=== PATIENT | male | born 2000 | race Caucasian/White ===

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

== ENCOUNTER 2025-04-22 02:25 | Emergency (ER) | payer MEDICAID, SELFPAY ==
--- NOTE | 2025-04-22 02:32 | ED_ITS ---
Discharge Plan Disposition Patient Disposition: Home, Self-Care Referrals Follow up/Referrals: Kaur Ramirez [Primary Care Provider, Medical] - See instructions Activity Restrictions/Add. Instructions Additional Instructions/Restrictions: Please follow-up with your primary care provider. Please return to the emergency department if you develop any new or worsening symptoms or become concerned for your health. Clinical Impressions Clinical Impression: Vomiting Print Language Print Language: German Discharge ED Provider: Juan Pearl General Adult HPI General Chief complaint: Headache Stated complaint: high blood pressure Time Seen by Provider: 04/22/25 02:32 History of Present Illness HPI narrative: 24-year-old male with history of hypertension presents with concern for high blood pressure. He reports that he woke up and felt like his heart was pounding. Not fast, but just hard. He also felt a little pressure in his temples. He took his metoprolol which is prescribed to him for blood pressure, he had not taken it today prior to this. He drove around for a while and then started to feel little bit worse and vomited and so decided to be evaluated. He reports he is not feeling nauseous right now and his heart is no longer pounding. Denies any other significant symptoms or concerns. Related Data Allergies Allergy/AdvReac Type Severity Reaction Status Date / Time No Known Allergies Allergy Verified 04/22/25 02:39 [facility] Disclaimer: The information contained in this section may have been updated after the patient was seen, as this information can be updated by other users. Social History Smoking Status: Never smoker alcohol intake: never current occupational status: other Travel in the last 8 weeks?: None ROS Obtained: Yes All systems reviewed & no additional complaints except as documented Physical Exam General General appearance: alert and in no apparent distress Head Head exam: atraumatic and normocephalic Eye Eye exam: Present normal appearance, PERRL and EOMI ENT ENT exam: Present normal oropharynx and normal external ear exam Neck Neck exam: Present normal inspection and full ROM Chest Chest inspection: Present normal inspection and symmetric chest wall rise; Absent tenderness Respiratory Respiratory exam: Present normal lung sounds bilaterally; Absent respiratory distress Cardiovascular Cardiovascular exam: Present regular rate and normal rhythm Abdominal Exam Abdominal exam: Present soft; Absent distention, tenderness or guarding Extremities Exam Extremities exam: Present normal inspection; Absent edema or joint swelling Back Exam Back exam: Present normal inspection; Absent tenderness Neurological Exam Neurological exam: Present alert and oriented X3; Absent motor sensory deficit Psychiatric Psychiatric exam: Present normal affect and normal mood Skin Skin exam: Present warm, dry and normal color Lymphatic Lymphatic Findings: no adenopathy Medical Decision Making Medical Records Medical records reviewed: Yes I reviewed the patient's medical records. Screening: Per USPSTF and CDC recommendations, given the prevalence of disease in our region, it is our hospital?s policy to screen for HIV and viral Hepatitis for all patients aged 18 and over and those with ongoing risk factors. Valentino Inquiry Pt receiving controlled substance: No Valentino was queried for this patient: No Vital Signs: 04/22/25 02:37 Temperature 98.9 F Temperature Source Oral Pulse Rate [Left] 99 H Respiratory Rate 16 Blood Pressure [Right Arm] 158/110 H Blood Pressure Mean [Right Arm] 126 Blood Pressure Source [Right Arm] Automatic Cuff Blood Pressure Position [Right Arm] Sitting 02 Sat by Pulse Oximetry 99 Oxygen Delivery Method Room Air Lab Data Lab results reviewed: Yes I reviewed the patient's lab results. Orders (Tests/Meds): ED MEDICATIONS Discontinued Medications Generic Name Dose Route Start Last Admin Trade Name Freq PRN Reason Stop Dose Admin Acetaminophen 1,000 mg 04/22/25 02:32 04/22/25 02:39 Acetaminophen 500mg Tab PO 04/22/25 02:33 1,000 mg ONCE ONE Administration ORDERS Category Date Time Status HIV Combo Stat Lab 04/22/25 02:47 Ordered Hepatitis C Ab Qual. W/ RFX Stat Lab 04/22/25 02:47 Ordered Medical Decision Narrative: 24-year-old male with history of hypertension presents for concern about possible high blood pressure.. History was obtained via interactive discussion with patient. On arrival, patient is [afebrile, hemodynamically stable, satting appropriately, alert, oriented x4, GCS 15], moving all extremities spontaneously. Full physical exam performed and significant for no significant physical exam abnormalities Differential includes but is not limited to asymptomatic hypertension, arrhythmia, tension headache, gastroenteritis. Patient was given Tylenol. There is significant concern for emergent pathology at this time. Lab work was considered but deemed unnecessary. Patient discharged in stable condition. Return precautions given. Procedures Risk/Benefits of Procedure(s) Were Explained: Yes Critical Care Critical Care Time Critical Care Time: No
--- OUTSIDE RECORDS SUMMARY | 2025-04-22 02:33 | XMS_ITS | Data Portability ---
Author Organization [facility] Address [address] [place] [address] Assessment Encounter Date Assessment Date Assessment LastModified by Organization Details LastModified Time 06/13/2018 06/13/2018 Well-appearing adolescent presents for WCC. Growing and developing well. No concerns about vision or hearing. Anticipatory guidance discussed, including post-high school plans, family communication, appropriate nutrition and activity for age, risk taking behaviors, car safety, sexual activity, avoid drugs/EtOH, signs of depression. Follow-up as below for next WCC, sooner if any new concerns. [email or web address] Not available 06/13/2018 10:26:01 11/21/2024 11/21/2024 -Medications were reviewed and any necessary updates and renewals were made, patient instructed to complete as prescribed. -The potential side effects of medications were discussed. -Counseling was done on care goals and ways to prevent future hospitalization s. -Further treatment per orders listed below. [email or web address] Not available 11/20/2024 11:42:50 Plan of Treatment Reminders Order Date Submit Date Provider Last Modified By Organization Details Last Modified Time Details Appointments None recorded. Lab HbA1c (hemoglobin A1c), blood 2024 025 [email or web address] s4 [facility], [address], [address] [address], [place], [address], 15:42:18 CMP, serum or plasma 2024 025 [email or web address] s4 [facility], [address], [place], [place], [address], 5 15:41:55 lipid panel, serum 2024 025 [email or web address] [facility], [address], [place] [address], [place], [address], 5 15:41:38 magnesium, serum or plasma 2024 025 TERESA [facility], [address], [place], [place], [address], 5 08:21:56 CBC w/ auto diff 2024 025 TERESA [facility], [address], [place], [place], [address], 5 08:21:51 cobalamin and folate panel, serum 2024 025 TERESA [facility], [address], [place], [place], [address], 5 08:21:54 CMP, serum or plasma 2024 025 TERESA [facility], [address], [place], [place], [address], 5 08:21:52 lipid panel, serum 2024 025 TERESA [facility], [address], [place], [place], [address], 5 08:21:53 TSH + free T4, serum 2024 025 TERESA [facility], [address], [place], [place], [address], 5 08:21:50 HbA1c (hemoglobin A1c), blood 2024 025 TERESA [facility], [address], [place], [place], [address], 5 08:21:54 vitamin D, 25-hydroxy, total, serum 2024 025 TERESA [facility], [address], [place], [place], [address], 08:21:55 lipid panel, serum 2024 025 [facility], [address], [place], [place], [address], 08:27:56 Referral cardiologis t referral 2024 025 [email or web address] 8 Christiano Ozuna MD, [address], [facility] [address], [place], [address], 16:50:38 nutritionis t/dietitian referral - he would like a good diet to help loose weight. 2024 025 [facility] s[address], [address] [facility], [place], [address], 12:00:29 Procedures None recorded. Surgeries None recorded. Imaging electrocard iogram 2024 025 [facility] s4 [facility], [address] [place] [address], [place], [address], 16:10:43 Medication Orders cholecalcif ministerio (vitamin D3) 50 mcg (2,000 unit) capsule 2024 025 [facility], [address] [place], [address], 5 14:25:14 metoprolol succinate ER 25 mg tablet,exte nded release 24 hr 2024 025 [facility], [address] [place], [address], 5 13:55:20 omeprazole 20 mg capsule,del ayed release 2024 025 [facility], [address] [place], [address], 13:55:23 metoprolol succinate ER 25 mg tablet,exte nded release 24 hr 2024 025 [facility], [address] [place], [address], 13:13:25 omeprazole 20 mg capsule,del ayed release 2024 025 [facility], [address] [place], [address], 13:13:24 ranitidine 150 mg tablet [email or web address] [facility], [address] [place], [address], 13:02:38 Patient TargetsNo targets recorded. Patient Instructions Encounter Date Encounter Id Patient Instructions Last Modified By Organization Details Last Modified Time 06/13/2018 [id number] learning about healthy weight for teens [email or web address] Not available 06/13/2018 10:30:13 patient health questionnaire modified for adolescents* [email or web address] Not available 06/13/2018 11:33:54 vision screen: Snellen* TERESA Not available 06/13/2018 10:48:38 11/21/2024 [id number] palpitations: care instructions Not available 11/21/2024 13:13:22 When You Want to Lose Weight: Care Instructions Not available 11/21/2024 13:13:22 Monitor b/p, record and bring back for f/u. Will call with lab results. Since he's not had any further SVT, most likely r/t binging, will hold off on cardiology opinion but plan to send if returns. Avoid Red Bull type of drinks. Avoid alcohol. RTC in a month or sooner prn. Not available 11/21/2024 13:24:17 12/26/2024 [id number] David magdaleno weekly reminder on phone for Vit D. Continue current medications and lifestyle modifications. Will see him back in 3 months. Plan to repeat labs at that visit. Vit D, CMP, HgbA1c, Lipid. The patient will report any new or worsening symptoms. The patient will return to clinic if new or worsening symptoms are noted, or if if the symptoms do not resolve. If marked worsening of the symptoms is noted the patient will go to the emergency department of their choice. Not available 12/26/2024 09:15:17 03/28/2025 [id number] Will send to cardiology. If chest pain worsens he knows to go to the ER. Keep hydrated. Will see him in 3 months and plan to repeat labs then (Vit D and hgba1c). We deferred labs today as cardiology will be getting some as well. 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 Referring Physician: Coreen Barragan, Family Medicine, Encounter Date: 11/21/2024 Spot Facer Referral for At ypical chest pain Referring Physician: Coreen Barragan Family Medicine, Encounter Date: 03/28/2025 Results Created Date Observation Date Name Description Value Unit Range Abnormal Flag Note LastModifiedBy Organization Detail LastModifiedTime 06/13/20 18 06/13/2018 dom méndez n: Candi en* Rt Eye Uncorrected 20/20 Not Available [facility] [address], [address], 06/13/2018 09:35:35 06/13/20 18 06/13/2018 dom méndez n: Candi en* Lt Eye Uncorrected 20/35 Not Available [facility] [address], [place], [address], 06/13/2018 09:35:35 11/21/19 25 11/22/2024 TSH+F REE T4 TSH 2.790 uIU/m L 0.450- 4.500 normal Not Available [facility] [address] [place], [address], 11/22/2024 08:21:50 11/21/19 25 11/22/2024 TSH+F REE T4 T4,free(dire ct) 1.16 NG/dL 0.82-1 .77 normal Not Available [facility] [address] [place], [address], 11/22/2024 08:21:50 11/21/19 25 11/22/2024 CBC WITH DIFFE RENTI AL/PL ATELE T WBC 9.2 x10e3 /uL 3.4-10 .8 normal Not Available [facility] [address] [place], [address], 11/22/2024 08:21:51 11/21/19 25 11/22/2024 CBC WITH DIFFE RENTI AL/PL ATELE T RBC 5.38 x10e6 /uL 4.14-5 .80 normal Not Available [facility] [address] [place], [address], 11/22/2024 08:21:51 11/21/19 25 11/22/2024 CBC WITH DIFFE RENTI AL/PL ATELE T hemoglobin 16.3 g/dL 13.0-1 7.7 normal Not Available [facility] [address] [place], [address], 11/22/2024 08:21:51 11/21/19 25 11/22/2024 CBC WITH DIFFE RENTI AL/PL ATELE T hematocrit 48.4 % 37.5-5 1.0 normal Not Available [facility] [address] [place], [address], 11/22/2024 08:21:51 11/21/19 25 11/22/2024 CBC WITH DIFFE RENTI AL/PL ATELE T MCV 90 fL 79-97 normal Not Available [facility] [address] [facility], [place], [address], 11/22/2024 08:21:51 11/21/19 25 11/22/2024 CBC WITH DIFFE RENTI AL/PL ATELE T MCH 30.3 pg 26.6-3 3.0 normal Not Available [facility] [address] [facility], [place], [address], 11/22/2024 08:21:51 11/21/19 25 11/22/2024 CBC WITH DIFFE RENTI AL/PL ATELE T MCHC 33.7 g/dL 31.5-3 5.7 normal Not Available [facility] [address] [facility], [place], [address], 11/22/2024 08:21:51 11/21/19 25 11/22/2024 CBC WITH DIFFE RENTI AL/PL ATELE T RDW 12.6 % 11.6-1 5.4 Not Available [facility] [address] [place], [address], 11/22/2024 08:21:51 11/21/19 25 11/22/2024 CBC WITH DIFFE RENTI AL/PL ATELE T platelets 181 x10e3 /uL 150-45 0 normal Not Available [facility] [address] [place], [address], 11/22/2024 08:21:51 11/21/19 25 11/22/2024 CBC WITH DIFFE RENTI AL/PL ATELE T neutrophils 60 % not estab. normal Not Available [facility] [address] [place], [address], 11/22/2024 08:21:51 11/21/19 25 11/22/2024 CBC WITH DIFFE RENTI AL/PL ATELE T lymphs 25 % not estab. normal Not Available [facility] [address] [place], [address], 11/22/2024 08:21:51 11/21/19 25 11/22/2024 CBC WITH DIFFE RENTI AL/PL ATELE T monocytes 7 % not estab. normal Not Available [facility] [address] [place], [address], 11/22/2024 08:21:51 11/21/19 25 11/22/2024 CBC WITH DIFFE RENTI AL/PL ATELE T eos 7 % not estab. normal Not Available [facility] [address] [place], [address], 11/22/2024 08:21:51 11/21/19 25 11/22/2024 CBC WITH DIFFE RENTI AL/PL ATELE T basos 1 % not estab. normal Not Available [facility] [address] [place], [address], 11/22/2024 08:21:51 11/21/19 25 11/22/2024 CBC WITH DIFFE RENTI AL/PL ATELE T immature cells WEB SERVICES DEVELOPER Not Available [facility] [address] [place], [address], 11/22/2024 08:21:51 11/21/19 25 11/22/2024 CBC WITH DIFFE RENTI AL/PL ATELE T neutrophils (absolute) 5.5 x10e3 /uL 1.4-7. 0 normal Not Available [facility] [address] [place], [address], 11/22/2024 08:21:51 11/21/19 25 11/22/2024 CBC WITH DIFFE RENTI AL/PL ATELE T lymphs (absolute) 2.3 x10e3 /uL 0.7-3. 1 normal Not Available [facility] [address] [place], [address], 11/22/2024 08:21:51 11/21/19 25 11/22/2024 CBC WITH DIFFE RENTI AL/PL ATELE T monocytes(ab solute) 0.6 x10e3 /uL 0.1-0. 9 normal Not Available [facility] [address] [place], [address], 11/22/2024 08:21:51 11/21/19 25 11/22/2024 CBC WITH DIFFE RENTI AL/PL ATELE T eos (absolute) 0.6 x10e3 /uL 0.0-0. 4 above high normal Not Available [facility] [address] [facility], [place], [address], 11/22/2024 08:21:51 11/21/19 25 11/22/2024 CBC WITH DIFFE RENTI AL/PL ATELE T baso (absolute) 0.1 x10e3 /uL 0.0-0. 2 normal Not Available [facility] [address] [place], [address], 11/22/2024 08:21:51 11/21/19 25 11/22/2024 CBC WITH DIFFE RENTI AL/PL ATELE T immature granulocytes 0 % not estab. Not Available [facility] [address] [facility], [place], [address], 11/22/2024 08:21:51 11/21/19 25 11/22/2024 CBC WITH DIFFE RENTI AL/PL ATELE T immature grans (abs) 0.0 x10e3 /uL 0.0-0. 1 Not Available [facility] [address] [facility], [place], [address], 11/22/2024 08:21:51 11/21/19 25 11/22/2024 CBC WITH DIFFE RENTI AL/PL ATELE T NRBC WEB SERVICES DEVELOPER Not Available [facility] [address] [facility], [place], [address], 11/22/2024 08:21:51 11/21/19 25 11/22/2024 CBC WITH DIFFE RENTI AL/PL ATELE T hematology comments: WEB SERVICES DEVELOPER Not Available [facility] [address] [facility], [place], [address], 11/22/2024 08:21:51 11/21/19 25 11/22/2024 COMP. METAB OLIC PANEL (14) glucose 114 mg/dL 70-99 above high normal Not Available [facility] [address] [facility] [place], [address], 11/22/2024 08:21:52 11/21/19 25 11/22/2024 COMP. METAB OLIC PANEL (14) BUN 13 mg/dL 6-20 normal Not Available [facility] [address] [facility], [place], [address], 11/22/2024 08:21:52 11/21/19 25 11/22/2024 COMP. METAB OLIC PANEL (14) creatinine 0.95 mg/dL 0.76-1 .27 normal Not Available [facility] [address] [facility] [place], [address], 11/22/2024 08:21:52 11/21/19 25 11/22/2024 COMP. METAB OLIC PANEL (14) eGFR 115 mL/mi n/1.7 3 >59 normal Not Available [facility] [address] [facility] [place], [address], 11/22/2024 08:21:52 11/21/19 25 11/22/2024 COMP. METAB OLIC PANEL (14) BUN/creatini ne ratio 14 9-20 normal Not Available [facility] [address] [facility] [place], [address], 11/22/2024 08:21:52 11/21/19 25 11/22/2024 COMP. METAB OLIC PANEL (14) sodium 137 mmol/ L 134-14 4 normal Not Available [facility] [address] [facility] [place], [address], 11/22/2024 08:21:52 11/21/19 25 11/22/2024 COMP. METAB OLIC PANEL (14) potassium 3.9 mmol/ L 3.5-5. 2 normal Not Available [facility] [address] [facility] [place], [address], 11/22/2024 08:21:52 11/21/19 25 11/22/2024 COMP. METAB OLIC PANEL (14) chloride 99 mmol/ L 96-106 normal Not Available [facility] [address] [facility], [address], 11/22/2024 08:21:52 11/21/19 25 11/22/2024 COMP. METAB OLIC PANEL (14) carbon dioxide, total 25 mmol/ L 20-29 normal Not Available [facility] [address] [place], [address], 11/22/2024 08:21:52 11/21/19 25 11/22/2024 COMP. METAB OLIC PANEL (14) calcium 9.7 mg/dL 8.7-10 .2 normal Not Available [facility] [address] [place] [place], [address], 11/22/2024 08:21:52 11/21/19 25 11/22/2024 COMP. METAB OLIC PANEL (14) protein, total 7.6 g/dL 6.0-8. 5 normal Not Available [facility] [address] [place], [address], 11/22/2024 08:21:52 11/21/19 25 11/22/2024 COMP. METAB OLIC PANEL (14) albumin 4.4 g/dL 4.3-5. 2 normal Not Available [facility] [address] [place], [address], 11/22/2024 08:21:52 11/21/19 25 11/22/2024 COMP. METAB OLIC PANEL (14) globulin, total 3.2 g/dL 1.5-4. 5 Not Available [facility] [address] [place], [address], 11/22/2024 08:21:52 11/21/19 25 11/22/2024 COMP. METAB OLIC PANEL (14) bilirubin, total 0.3 mg/dL 0.0-1. 2 normal Not Available [facility] [address] [place], [address], 11/22/2024 08:21:52 11/21/19 25 11/22/2024 COMP. METAB OLIC PANEL (14) alkaline phosphatase 104 IU/L 44-121 normal Not Available [facility] [address] [place], [address], 11/22/2024 08:21:52 11/21/19 25 11/22/2024 COMP. METAB OLIC PANEL (14) AST (SGOT) 45 IU/L 0-40 above high normal Not Available [facility] [address] [place], [address], 11/22/2024 08:21:52 11/21/19 25 11/22/2024 COMP. METAB OLIC PANEL (14) ALT (SGPT) 92 IU/L 0-44 above high normal Not Available [facility] [address] [place], [address], 11/22/2024 08:21:52 11/21/19 25 11/22/2024 LIPID PANEL cholesterol, total 164 mg/dL 100-19 9 normal Not Available [facility] [address] [place], [address], 11/22/2024 08:21:53 11/21/19 25 11/22/2024 LIPID PANEL triglyceride s 134 mg/dL 0-149 normal Not Available [facility] [address] [place], [address], 11/22/2024 08:21:53 11/21/19 25 11/22/2024 LIPID PANEL HDL cholesterol 42 mg/dL >39 normal Not Available [facility] [address] [place], [address], 11/22/2024 08:21:53 11/21/19 25 11/22/2024 LIPID PANEL VLDL cholesterol sherly 24 mg/dL 5-40 Not Available [facility] [address] [place], [address], 11/22/2024 08:21:53 11/21/19 25 11/22/2024 LIPID PANEL LDL chol calc ([facility]) 98 mg/dL 0-99 Not Available [facility] [address] [place], [address], 11/22/2024 08:21:53 11/21/19 25 11/22/2024 LIPID PANEL LDL calc comment: WEB SERVICES DEVELOPER Not Available [facility] [address] [place], [address], 11/22/2024 08:21:53 11/21/19 25 11/22/2024 VITAM IN B12 AND FOLAT E vitamin B12 470 pg/mL 232-12 45 normal Not Available [facility] [address] [place], [address], 11/22/2024 08:21:53 11/21/19 25 11/22/2024 VITAM IN B12 AND FOLAT E folate (folic acid), serum 6.1 NG/mL >3.0 normal A serum folat e senia ntrat ion of less than 3.1 ng/mL is consi dered to repre sent clini sherly defic iency . Not Available [facility] [address] [facility], [place], [address], 11/22/2024 08:21:53 11/21/19 25 11/22/2024 HEMOG LOBIN A1C hemoglobin A1C 6.0 % 4.8-5. 6 above high normal Predi abete s: 5.7 - 6.4 Diabe tahmina: >6.4 Glyce nita contr ol for adult s with diabe tahmina: <7.0 Not Available [facility] [address] [facility], [place], [address], 11/22/2024 08:21:54 11/21/19 25 11/22/2024 VITAM IN D, 25-HY DROXY vitamin D, 25-hydroxy 19.5 NG/mL 30.0-1 00.0 below low normal Vitam in D defic iency has been defin ed by the Insti tute of Medic ine and an Endoc [facility] Socie ty pract ice guide line as a level of serum 25-OH vitam in D less than 20 ng/mL (1,2) . The Endoc rine Socie ty went on to furth er defin e vitam in D insuf ficie ncy as a level betwe en 21 and 29 ng/mL (2). 1. IOM (Inst itute of Medic ine). 2010. Dieta ry refer ence intak es for calci um and D. Heaven santos [place]: The Natio nal [facility] Press . 2. Elmer conti MF, Clint saldivar [place], Akila off-F hannah i PASTRANA, et al. Evalu ation , treat ment, and preve ntion of vitam in D defic iency : an Endoc rine Socie ty clini sherly pract ice guide line. JCEM. 2010; 96(7) :1911 -30. Not Available [facility] [address] [facility], [place], [address], 11/22/2024 08:21:55 11/21/19 25 11/22/2024 MAGNE SIUM magnesium 2.1 mg/dL 1.6-2. 3 normal Not Available [facility] [address] [facility], [place], [address], 11/22/2024 08:21:56 06/02/20 18 06/02/2018 CT, abdom en + pelvi s, w/o contr ast No observ ation record ed. [email or web address] (Imaging) [address] [facility] , [place], [address], 06/02/2018 15:08:48 11/22/19 25 11/19/2024 elect rocar diogr am No observ ation record ed. BARCODE Not Available 2024 14:17:38 03/28/20 25 03/28/2025 elect rocar diogr am No observ ation record ed. [facility] [address], [place], [address], 03/28/2025 16:47:08 03/28/20 25 03/28/2025 elect rocar diogr am No observ ation record ed. BARCODE [facility] [address] [facility], [place], [address], 03/28/2025 17:19:52 Result Notes None recorded. Problems Name Problem SNOMED Code Status Onset Date Resolution Date Notes Provider Name and Address Organization Details Recorded Time Palpitations 79769800 Active 2024 Coreen Barragan APRN [address], [place], [address], [facility] - [facility] 13:08:25 Elevated blood-pressure reading without diagnosis of hypertension 523029543 Active 2024 Coreen Barragan APRN [address], [place], [address], [place] - [facility] 5 13:08:41 Gastroesophage al reflux disease without esophagitis 726529012 Active 2024 Coreen Barragan , TOUR NARRATOR [address], [place], [address], [place] - [facility] 5 13:11:33 Morbid obesity 396051954 Active 2024 Coreen Barragan , TOUR NARRATOR [address], [place], [address], [place] - [facility] 5 13:12:47 Vitamin D deficiency 13085317 Active 2024 Coreen Barragan , TOUR NARRATOR [address], [place], [address], [place] - [facility] 5 15:24:30 Prediabetes 527229348 Active 2024 Coreen Barragan , TOUR NARRATOR [address], [place], [address], [place] - [facility] 5 15:28:07 Atypical chest pain 440685566 Active 2024 Coreen Barragan , TOUR NARRATOR [address], [place], [address], [place] - [facility] 5 15:29:00 Tachycardia 0358771 Active 2024 Coreen Barragan , TOUR NARRATOR [address], [place], [address], [place] - [facility] 5 15:38:17 Problem Notes None recorded. Procedures Surgical History Date Name Laterality Status Provider Name and Address Organization Details Recorded Time 11/21/19 Medication Reconcilliation completed Julia Rodriguez [place] - [facility] 11/20/2024 11:42:50 Imaging Results None recorded. Procedure Notes None recorded. Medical Equipment None Reported. Allergies No known drug allergies Medications Name Sig Start Date Stop Date Status Note LastModified by Organization Details LastModified Time loperamid e 2 mg tablet take 1 tablet by oral route 2 times a day for 1 day 05/10 completed loperami de 2 mg oral tablet;R ecorded Status: Recorded on: 08/15/20 13 11:02AM; Disconti nued Status: Disconti nued on: 05/10/20 14 3:57PM;U ser: [email or web address] b;Printe d: 08/15/20 13 Not Available Not Available Not Available penicilli n V potassium 500 mg tablet take 1 tablet (500 mg) by oral route 3 times per day for 10 days 05/10 completed penicill in V potassiu m 500 mg oral tablet;R ecorded Status: Recorded on: 08/15/20 13 11:02AM; Disconti nued Status: Disconti nued on: 05/10/20 14 3:57PM;U ser: [email or web address] b;Est. Completi on: 08/25/20 13;Print ed: 08/15/20 13 Not Available Not Available Not Available Phenergan 25 mg rectal supposito ry 1 tsp po q 6 hrs prn 06/30 completed Phenerga n 25 mg rectal supposit ory;Marc rded Status: Recorded on: 07/06/20 08 10:04PM; Disconti nued Status: Disconti nued on: 06/30/20 12 1:27PM;U ser: system Not Available Not Available Not Available ranitidin e 150 mg tablet Take 1 tablet twice a day by oral route. 11/21 completed Not Available Not Available Not Available Concerta 36 mg tablet,ex tended release 1 q am 06/30 completed Concerta 36 mg oral tablet extended release 24hr;Rec orded Status: Recorded on: 07/06/20 08 10:03PM; Disconti nued Status: Disconti nued on: 06/30/20 12 1:27PM;U ser: [email or web address] Not Available Not Available Not Available omeprazol e 20 mg capsule,d elayed release TAKE (1) CAPSULE BY MOUTH ONCE A DAY. active Not Available Not Available No t Available metoprolo l succinate ER 25 mg tablet,ex tended release 24 hr TAKE 1 TABLET BY MOUTH ONCE A DAY. active Not Available Not Available No t Available Benadryl 6.25 mg/5 mL oral liquid one tsp po q 6 hrs prn 06/30 completed Benadryl 6.25 mg/5 mL oral liquid;R ecorded Status: Recorded on: 07/06/20 08 10:03PM; Disconti nued Status: Disconti nued on: 06/30/20 12 1:27PM;U ser: [email or web address] Not Available Not Available Not Available cholecalc iferol (vitamin D3) 1,250 mcg (50,000 unit) capsule TAKE 1 CAPSULE BY MOUTH ONCE A WEEK FOR VIT D DEFICIEN CY. 03/28 completed Not Available Not Available Not Available cholecalc iferol (vitamin D3) 50 mcg (2,000 unit) capsule TAKE 1 CAPSULE BY MOUTH ONCE DAILY. active Not Available Not Available No t Available Vitals Date Recorded Body height Body mass index (BMI) Body weight Heart rate Body temperature Oxygen saturation Oxygen saturation in Arterial blood by Pulse oximetry Respiratory rate Systolic And Diastolic Provider Name and Address Organization Details Last Updated DateTime 5 170.18 cm 42.8 kg/m2 254919. 42 g 89 /min 97.8 [degF] 98 % 98 % 17 /min 132/88 mm[Hg] Kareen Fede [place] - [facility] 5 13:04:40 Date Recorded Body height Body mass index (BMI) Body weight Heart rate Oxygen saturation Oxygen saturation in Arterial blood by Pulse oximetry Body temperature Respiratory rate Systolic And Diastolic Provider Name and Address Organization Details Last Updated DateTime 5 170.18 cm 41.8 kg/m2 560362. 16 g 95 /min 98 % 98 % 97.8 [degF] 18 /min 126/80 mm[Hg] Julia Rodriguez [place] - [facility] 5 08:59:13 Date Recorded Body height Body mass index (BMI) Body weight Body temperature Heart rate Oxygen saturation Oxygen saturation in Arterial blood by Pulse oximetry Respiratory rate Systolic And Diastolic Provider Name and Address Organization Details Last Updated DateTime 5 170.18 cm 42 kg/m2 036232. 76 g 98 [degF] 88 /min 97 % 97 % 19 /min 128/84 mm[Hg] Kuldeep Bourgeois [place] - [facility] 5 15:19:16 Date Recorded Body height Body mass index (BMI) Body weight Body temperature Heart rate Oxygen saturation Oxygen saturation in Arterial blood by Pulse oximetry Respiratory rate Systolic And Diastolic Provider Name and Address Organization Details Last Updated DateTime 8 170.18 cm 24 kg/m2 12391.0 3 g 98.4 [degF] 84 /min 98 % 98 % 16 /min 120/80 mm[Hg] Adriana KWONG - [facility] 8 09:49:22 Social History Question Answer Notes LastModified by Organizat ion Details LastModified Time Tobacco Smoking Status Never Smoker VARGHESE Love - [facility] 06/13/2018 09:39:41 Able To Swim? Yes [email or web address] Information not available 06/13/2018 Do You Have An Advance Directive? No [email or web address] Information not available 06/13/2018 Do You Wear A Helmet When Biking? No [email or web address] Information not available 06/13/2018 Are You Blind Or Do You Have Difficulty Seeing? No [email or web address] Information not available 06/13/2018 What Is Your Level Of Caffeine Consumption? Occasional [email or web address] Information not available 06/13/2018 How Much Tobacco Do You Chew? None [email or web address] Information not available 06/13/2018 Are You Deaf Or Do You Have Serious Difficulty Hearing? No [email or web address] Information not available 06/13/2018 Which Illicit Or Recreational Drugs Have You Used? Denies [email or web address] Information not available 06/13/2018 How Many Days Of Moderate To Strenuous Exercise, Like A Brisk Walk, Did You Do In The Last 7 Days? 1 Information not available 06/13/2018 On Those Days That You Engage In Moderate To Strenuous Exercise, How Many Minutes, On Average, Do You Exercise? 1 [email or web address] Information not available 06/13/2018 Swimming/diving Yes Informati on not available 06/13/2018 Hard Of Hearing Or Deaf In One Or Both Ears? No [email or web address] Information not available 06/13/2018 Legally Blind In One Or Both Eyes? No [email or web address] Information no t available 06/13/2018 Live Alone Or With Others? With Others [email or web address] Information not available 06/13/2018 What Was The Date Of Your Most Recent Tobacco Screening? 11/21/2024 [email or web address] Information not available 11/21/2024 How Many Children Do You Have? 0 [email or web address] Information not available 06/13/2018 Do You Use Protection During Sex? Always Information not available 06/13/2018 What Is Your Relationship Status? Single [email or web address] Information not available 06/13/2018 Seat Belts Used Routinely Yes Information not available 06/13/2018 Are You Sexually Active? Yes [email or web address] Information not available 06/13/2018 Smoke Alarm In Home Yes [email or web address] Information not available 06/13/2018 Are You Passively Exposed To Smoke? Yes [email or web address] Information no t available 06/13/2018 How Much Tobacco Do You Smoke? No [email or web address] Information not available 06/13/2018 Do You Use Sunscreen Routinely? No [email or web address] Information not available 06/13/2018 How Many Years Have You Smoked Tobacco? 0 [email or web address] Information not available 06/13/2018 Do You Have Difficulty Walking Or Climbing Stairs? No Information not available 06/13/2018 Sex: Male Functional Status Question Answer Note LastModified by Organization D etails LastModified Time What is your level of alcohol consumption? None [email or web address] Information not available 06/13/2018 Do you have difficulty doing errands alone? No [email or web address] Information not available 06/13/2018 Are you able to care for yourself? Yes [email or web address] Information n ot available 06/13/2018 Do you have difficulty dressing or bathing? No [email or web address] Information not available 06/13/2018 Mental Status Question Answer Note LastModified by Organization D etails LastModified Time Do you have difficulty concentrating, remembering or making decisions? No [email or web address] Information no t available 06/13/2018 Family History Relationship Description Onset Age of this Age Resolved Age Notes LastModified by Organization Details LastModified Time Mother Type 2 diabetes mellitus [email or web address] Not available 2017 09:38:53 Medical History No medical history recorded. Immunizations Vaccine Type Date Status Note Provider Nam e and Address Organization Details Recorded Time Influenza, split virus, quadrivalent, preservative 7 completed Kareen Fede null, [place] - [facility] 11/21/2024 13:02:28 Hib-Hep B 2 completed Kareen Fede null, [place] - [facility] 11/21/2024 13:02:29 Hib-Hep B 1 completed Kareen Fede null, [place] - [facility] 11/21/2024 13:02:29 HPV9 7 completed Kareen Fede null, [place] - [facility] 11/21/2024 13:02:29 IPV 2 completed [place]are[place], [place] - [facility] 11/21/2024 13:02:29 COVID-19 vaccine, vector-nr, [id number], PF, 0.5 mL 1 completed Kareen [place], [place] - [facility] 11/21/2024 13:02:29 pneumococcal conjugate PCV 7 3 completed [place]are[place], [place] - [facility] 11/21/2024 13:02:29 pneumococcal conjugate PCV 7 1 [place] [place] [facility] 11/21/2024 13:02:29 Tdap 2 completed [place] [facility] 11/21/2024 13:02:29 Influenza, split virus, trivalent, preservative 2 completed [place]are[place] - [facility] 11/21/2024 13:02:29 Influenza, split virus, trivalent, preservative 2 completed [place] [facility] 11/21/2024 13:02:29 Influenza, split virus, trivalent, preservative 3 completed [place]are[place] - [facility] 11/21/2024 13:02:29 Influenza, split virus, trivalent, PF 2 completed [place] [facility] 11/21/2024 13:02:29 HPV, quadrivalent 4 completed [place] [facility] 11/21/2024 13:02:29 HPV, quadrivalent 3 completed [place] [facility] 11/21/2024 13:02:29 Hep B, adolescent or pediatric 1 completed [place] [facility] 11/21/2024 13:02:29 Hib (PRP-OMP) 1 completed [place] [facility] 11/21/2024 13:02:29 meningococcal MCV4P 7 completed Kare[place] Fed[place] null, [place] - [facility] 11/21/2024 13:02:29 DTaP, unspecified formulation 5 completed [place] [facility] 11/21/2024 13:02:29 DTaP, unspecified formulation 1 completed [place] [facility] 11/21/2024 13:02:29 DTaP, unspecified formulation 1 completed [place] [facility] 11/21/2024 13:02:29 DTaP, unspecified formulation 1 completed [place] [facility] 11/21/2024 13:02:29 DTaP, unspecified formulation 2 completed [place] [facility] 11/21/2024 13:02:29 meningococcal MCV4, unspecified formulation 7 completed [place] [facility] 11/21/2024 13:02:29 meningococcal MCV4, unspecified formulation 2 completed [place] [facility] 11/21/2024 13:02:29 influenza, unspecified formulation 6 completed Adriana Velasquez [place] [facility] 06/13/2018 09:36:22 Tdap 2 completed Adri[place] Vel[place] [facility] 06/13/2018 11:35:23 IPV 1 completed Adri[place] [facility] 06/13/2018 11:35:37 IPV 1 completed Adri[place] Vel[place] [facility] 06/13/2018 11:36:05 IPV 2 completed Adri[place] Vel[place] [facility] 06/13/2018 11:37:25 IPV 5 completed Adri[place] [facility] 06/13/2018 11:37:55 MMR 2 completed Adri[place] [facility] 06/13/2018 11:38:44 MMR 5 completed Adri[place] Vel[place] [facility] 06/13/2018 11:39:36 Hib, unspecified formulation 2 completed Adri[place] - [facility] 06/13/2018 11:40:46 Hep B, unspecified formulation 2 completed Adri[place] [facility] 06/13/2018 11:41:34 varicella 2 completed Adri[place] - [facility] 06/13/2018 11:41:49 varicella 2 completed Adriana Velas[place] null[place] - [facility] 06/13/2018 11:42:13 meningococcal ACWY, unspecified formulation 4 completed Adri[place], [place] - [facility] 06/13/2018 11:43:32 meningococcal ACWY, unspecified formulation 7 completed Adriana Velas[place] null, [place] - [facility] 06/13/2018 11:43:54 Hep A, ped/adol, 2 dose 8 completed Not Available [facility] 10/20/2019 03:55:09 Past Encounters Encounter ID Performer Location Encounter Start Date Encounter Closed Date Diagnosis/Indication Diagnosis SNOMED-CT Code Diagnosis ICD10 Code Diagnosis Note [id number] MITA Fajardo [facility] [address] [facility] [place] [address] 06/13/2018 09:11:16 06/13/2018 10:49:54 Well child 835944453 Z00.129 Dietary ma nagement surveillance 010971567 Z71.3 Exercises education, guidance, and counseling 549964634 Z71.82 Depression screening 171 809181 Z13.89 On examina tion - general eye examination 310987463 Z01.00 Normal bod y mass index 54288453 Z68.52 Gastritis 3441580 K29.70 Active or passive immunization 570913540 Z23 [id number] MITA Ramosmarcy [facility] [address] [facility] [place] [address] 11/21/2024 12:44:45 11/21/2024 13:27:39 Palpitations 10471045 R00.2 with recent SVT, seen in the ER. Resolved spontaneou sly. Elevated blood-pressure reading without diagnosis of hypertension 720340914 R03.0 Gastroesop hageal reflux disease without esophagitis 985528809 K21.9 Will start omeprazole to see if his symptoms improve. Morbid obesity 077815988 E66.01 Told that he would not be a candidate for phentermin e secondary to SVT. Will send to dieticiian . [id number] Coreen Barragan APRN [facility] [address] [place] [address] 12/26/2024 08:54:59 12/26/2024 09:06:17 Gastroesophageal reflux disease without esophagitis 863731776 K21.9 Symptoms improved. Will continue. He has changed up his diet as well. Elevated blood-pressure reading without diagnosis of hypertension 773835660 R03.0 Improved. Vitamin D deficiency 347 47728 E55.9 Is forgetting to take supplement . Level was 19.5 Prediabetes 777466540 R7 3.03 hgba1c 6.0. [id number] [facility] [address] [place] [address] 03/28/2025 15:09:29 03/28/2025 15:39:38 Elevated blood-pressure reading without diagnosis of hypertension 559259826 R03.0 Improved. Vitamin D deficiency 347 90101 E55.9 Is forgetting to take supplement . Level was 19.5 Prediabetes 648608248 R7 3.03 hgba1c 6.0. Atypical chest pain 1025 98155 R07.89 Tachycardia 9539334 R00. 0 Offered to increase beta gilbert and he declined. Health Concerns Section Related Observation LastModified by Organization Detai ls LastModified Time None Recorded Concern Status LastModified by Organization Details LastModified Time None Recorded Advance Directives Directive N: Payers Insurance Date Sequence Insurance Name Policy Number Policy Gomez Covered Member ID Gomez Member ID Guarantor Name 03/28/2025 1 [employer] [place] (MEDICAID HMO) Lito Hernandez [id number] Yanet Tao 03/28/2025 [place] - [facility] (MEDICAID) Lito Hernandez [id number] Yanet Tao Notes Date Note Type Note Provider Name and Address Organization Details Recorded Time 06/13/2018 text/html Patient Lito Rick, presents today for Adolescents Well Child Check. He is also having c/o GI upset. Had a CT done recently at [facility] which was negative. Karel José, TOUR NARRATOR [address], [place], [address], [place] - [facility] 06/13/2018 12:17:03 11/21/2024 text/html Emergency Depart ment Follow-Up RecordReported bypatient.Discharge InformationName of hospital/urgent care patient was seen: ([facility]); Patient presented to hospital/urgent care on or around: actual date 11/19/24; Patient presented to hospital for treatment of: (chest pain); Hospital records available at the time of this visit: Yes This is a 24 year old male who presents back as an ER follow up. He was seen at [facility] on 11/19/23. He presented for chest pain/tachycardia. He had been binge drinking (Red Bull/[place]) celebrating his and his cousins birthdays for a week. Creola dizzy and heart beating quickly. HR upon admission was 180 and b/p 140/89. EKG was consistent w/ SVT. They attempted vagal maneuvers without appropriate response. While adenosine was being obtained, he converted on his own. He was given a L of fluids, Zofran and Metoprolol 25 mg ER. Avoidance of binge drinking was discussed w/ patient. EKG at showed. SVT rate 184. IRBBB, RAD. Has had a few chest pains when he was laying down last night. No palpation's.Has acid reflux.Hx of pneumonia, sometimes coughs up yellow phlegmDoes chews, nicotine pouches. Was eating poorly for a long time.Hard to loose weight. He has cut out pop, drinks water.Rare headaches. Coreen Barragan, TOUR NARRATOR [address], [place], [address], [place] - [facility] 11/21/2024 13:25:47 12/26/2024 text/html Lito is her for f/u of blood pressure/palpitations and elevated liver enzymes. He had labs that showed that he was deficient in Vit D. He was prescribed replacement but does admit that he forgets to take it.He was started on beta gilbert for elevated b/p and had had been noted to have SVT in the ER. Symptoms have improve. Did forget to take his b/p tablet a couple of days. He was placed on Omeprazole for symptoms consistent with reflux. He feels improved on this. Can tell a difference if he forgets. Has changed his diet and is not drinking alcohol. His weight is down from last visit.Was ordered an US of liver but he hasn't been able to complete that. He forgets and eats prior. Coreen Barragan, TOUR NARRATOR [address], [place], [address], [place] - [facility] 12/26/2024 09:15:30 03/28/2025 text/html Pt is in today f or follow up on HTN and discuss lab work Hasn't had b/p medication today. Does not check at home. B/P a little up today. Vit D 50,000 units makes him sick. Is willing to try lower dosage. Gets occasional chest pain. Can happen twice a week. Upper chest on left side and under breast. Feels like a pressure. Can happen with or without exertion. No diaphoresis. Feels like a wet feeling over his skin. No heart skipping or racing. No nausea/vomiting or soa. No family hx of heart disease. Mother had DM. Coreen Barragan, MITA [address], [place], [address], [place] - [facility] 03/28/2025 16:13:02
--- OUTSIDE RECORDS SUMMARY | 2025-04-22 02:33 | XMS_ITS | Continuity of Care Document ---
Author Organization [facility] Address [address] [place] [address] Assessment No assessment recorded. Plan of Treatment Reminders Order Date Submit Date Provider Last Modified By Organization Details Last Modified Time Details Appointments None recorded. Lab None recorded. Referral cardiologis t referral 2024 025 [email or web address] 8 Christiano Ozuna MD, [address] [place] [address] Dr, [address], [address], 16:50:38 Procedures None recorded. Surgeries None recorded. Imaging electrocard iogram 2024 025 [email or web address] s4 [facility], [address] [place] [address], [place], [address], 16:10:43 Medication Orders cholecalcif ministerio (vitamin D3) 50 mcg (2,000 unit) capsule 2024 025 [facility], [address] [place], [address], 14:25:14 Patient TargetsNo targets recorded. Patient Instructions Encounter Date Encounter Id Patient Instructions Last Modified By Organization Details Last Modified Time 03/28/2025 [id number] Will send to cardiology. If chest pain worsens he knows to go to the ER. Keep hydrated. Will see him in 3 months and plan to repeat labs then (Vit D and hgba1c). We deferred labs today as cardiology will be getting some as well. Not available 03/28/2025 16:11:27 Reason for Referral Research Investigator Referral for At ypical chest pain Referring Physician: Coreen Barragan, Family Medicine, Encounter Date: 03/28/2025 Results Created Date Observation Date Name Description Value Unit Range Abnormal Flag Note LastModifiedBy Organization Detail LastModifiedTime 03/28/20 25 03/28/2025 elect rocar diogr am No observ ation record ed. [facility] [address], [place], [address], 03/28/2025 16:47:08 03/28/20 25 03/28/2025 elect rocar diogr am No observ ation record ed. [facility]CODE [facility] [address], [place], [address], 03/28/2025 17:19:52 Result Notes None recorded. Problems Name Problem SNOMED Code Status Onset Date Resolution Date Notes Provider Name and Address Organization Details Recorded Time Palpitations 49662030 Active 2024 Coreen Barragan , SAFETY ADVISOR [address], [place], [address], [place] - [facility] 5 13:08:25 Elevated blood-pressure reading without diagnosis of hypertension 966400688 Active 2024 Coreen Barragan APRN [address], [place], [address], [place] - [facility] 5 13:08:41 Gastroesophage al reflux disease without esophagitis 140897588 Active 2024 Coreen Barragan SAFETY ADVISOR [address], [place], [address], [place] - [facility] 5 13:11:33 Morbid obesity 108775089 Active 2024 Coreen Barragan APRN [address], [place], [address], [place] - [facility] 5 13:12:47 Vitamin D deficiency 44705092 Active 2024 Coreen Barragan APRN [address], [place], [address], [facility] - [facility] 5 15:24:30 Prediabetes 316948402 Active 2024 Coreen Barragan , SAFETY ADVISOR [address], [place], [address], [facility] - [facility] 5 15:28:07 Atypical chest pain 267740346 Active 2024 Coreen Barragan APRN [address], [place], [address], [facility] - [facility] 5 15:29:00 Tachycardia 6546376 Active 2024 Coreen Barragan , SAFETY ADVISOR [address], [place], [address], [facility] 5 15:38:17 Problem Notes None recorded. Procedures Surgical History Date Name Laterality Status Provider Name and Address Organization Details Recorded Time 11/21/19 Medication Reconcilliation completed Julia Rodriguez [facility] 11/20/2024 11:42:50 Imaging Results None recorded. Procedure [...] Updated DateTime 5 170.18 cm 42 kg/m2 829444. 76 g 98 [degF] 88 /min 97 % 97 % 19 /min 128/84 mm[Hg] Kuldeep Bourgeois [place] - [facility] 5 15:19:16 Social History Question Answer Notes LastModified by Organizat ion Details LastModified Time Tobacco Smoking Status Never Smoker Adriana Velasquez jacey, [place] - [facility] 06/13/2018 09:39:41 Able To Swim? Yes [email or web address] Information not available 06/13/2018 Do You Have An Advance Directive? No [email or web address] Information not available 06/13/2018 Do You Wear A Helmet When Biking? No [email or web address] Information not available 06/13/2018 Are You Blind Or Do You Have Difficulty Seeing? No [email or web address] Information not available 06/13/2018 What Is Your Level Of Caffeine Consumption? Occasional [email or web address] Information not available 06/13/2018 How Much Tobacco Do You Chew? None [email or web address] Information not available 06/13/2018 Are You Deaf Or Do You Have Serious Difficulty Hearing? No [email or web address] Information not available 06/13/2018 Which Illicit Or Recreational Drugs Have You Used? Denies [email or web address] Information not available 06/13/2018 How Many Days Of Moderate To Strenuous Exercise, Like A Brisk Walk, Did You Do In The Last 7 Days? 1 Information not available 06/13/2018 On Those Days That You Engage In Moderate To Strenuous Exercise, How Many Minutes, On Average, Do You Exercise? 1 [email or web address] Information not available 06/13/2018 Swimming/diving Yes [email or web address] Informati on not available 06/13/2018 Hard Of Hearing Or Deaf In One Or Both Ears? No [email or web address] Information not available 06/13/2018 Legally Blind In One Or Both Eyes? No [email or web address] Information no t available 06/13/2018 Live Alone Or With Others? With Others [email or web address] Information not available 06/13/2018 What Was The Date Of Your Most Recent Tobacco Screening? 11/21/2024 [email or web address] Information not available 11/21/2024 How Many Children Do You Have? 0 [email or web address] Information not available 06/13/2018 Do You Use Protection During Sex? Always [email or web address] Information not available 06/13/2018 What Is Your Relationship Status? Single [email or web address] Information not available 06/13/2018 Seat Belts Used Routinely Yes Information not available 06/13/2018 Are You Sexually Active? Yes [email or web address] Information not available 06/13/2018 Smoke Alarm In Home Yes [email or web address] Information not available 06/13/2018 Are You Passively Exposed To Smoke? Yes [email or web address] Information no t available 06/13/2018 How Much Tobacco Do You Smoke? No [email or web address] Information not available 06/13/2018 Do You Use Sunscreen Routinely? No [email or web address] Information not available 06/13/2018 How Many Years Have You Smoked Tobacco? 0 [email or web address] Information not available 06/13/2018 Do You Have Difficulty Walking Or Climbing Stairs? No [email or web address] Information not available 06/13/2018 Sex: Male Functional Status Question Answer Note LastModified by Organization D etails LastModified Time What is your level of alcohol consumption? None [email or web address] Information not available 06/13/2018 Do you have difficulty doing errands alone? No [email or web address] Information not available 06/13/2018 Are you able to care for yourself? Yes [email or web address] Information n ot available 06/13/2018 Do you have difficulty dressing or bathing? No [email or web address] Information not available 06/13/2018 Mental Status Question Answer Note LastModified by Organization D etails LastModified Time Do you have difficulty concentrating, remembering or making decisions? No [email or web address] Information no t available 06/13/2018 Family History Relationship Description Onset Age of this Age Resolved Age Notes LastModified by Organization Details LastModified Time Mother Type 2 diabetes mellitus Not available 2017 09:38:53 Medical History No medical history recorded. Immunizations Vaccine Type Date Status Note Provider Nam e and Address Organization Details Recorded Time Influenza, split virus, quadrivalent, preservative 7 completed Kareen Fede null, [place] - [facility] 11/21/2024 13:02:28 Hib-Hep B 2 completed Kareen Fede null, [place] - [facility] 11/21/2024 13:02:29 Hib-Hep B 1 completed Kareen Fede null, [place] - [facility] 11/21/2024 13:02:29 HPV9 7 completed Kareen Fede null, [place] - [facility] 11/21/2024 13:02:29 IPV 2 completed Kareen Fed[place] null, [place] - [facility] 11/21/2024 13:02:29 COVID-19 vaccine, vector-nr, rS-Ad26, PF, 0.5 mL 1 completed Kareen Fed[place] null, [place] - [facility] 11/21/2024 13:02:29 pneumococcal conjugate PCV 7 3 completed Kareen Fed[place] null, [place] - [facility] 11/21/2024 13:02:29 pneumococcal conjugate PCV 7 1 completed [place]are[place] - [facility] 11/21/2024 13:02:29 Tdap 2 completed Kareen Fede null, [place] - [facility] 11/21/2024 13:02:29 Influenza, split virus, trivalent, preservative 2 completed Kareen Fede null, [place] - [facility] 11/21/2024 13:02:29 Influenza, split virus, trivalent, preservative 2 completed Kareen Fed[place] - [facility] 11/21/2024 13:02:29 Influenza, split virus, trivalent, preservative 3 completed Kare[place] Fed[place] - [facility] 11/21/2024 13:02:29 Influenza, split virus, trivalent, PF 2 completed Kareen Fede null, [place] - [facility] 11/21/2024 13:02:29 HPV, quadrivalent 4 completed Kareen Fed[place] null, [place] - [facility] 11/21/2024 13:02:29 HPV, quadrivalent 3 completed Kareen Fed[place] null, [place] - [facility] 11/21/2024 13:02:29 Hep B, adolescent or pediatric 1 completed Kareen Fede null, [place] - [facility] 11/21/2024 13:02:29 Hib (PRP-OMP) 1 completed Kareen Fede null, [place] - [facility] 11/21/2024 13:02:29 meningococcal MCV4P 7 [...] unspecified formulation 2 completed Adriana Velasquez null, [place] - [facility] 06/13/2018 11:40:46 Hep B, unspecified formulation 2 completed Adriana Velasquez null, [place] - [facility] 06/13/2018 11:41:34 varicella 2 completed Adriana Velasquez null, [place] - [facility] 06/13/2018 11:41:49 varicella 2 completed Adriana Velasquez null, [place] - [facility] 06/13/2018 11:42:13 meningococcal ACWY, unspecified formulation 4 completed Adriana Velasquez null, [place] - [facility] 06/13/2018 11:43:32 meningococcal ACWY, unspecified formulation 7 completed Adriana Velasquez null, [place] - [facility] 06/13/2018 11:43:54 Hep A, ped/adol, 2 dose 8 completed Not Available [facility] 10/20/2019 03:55:09 Past Encounters Encounter ID Performer Location Encounter Start Date Encounter Closed Date Diagnosis/Indication Diagnosis SNOMED-CT Code Diagnosis ICD10 Code Diagnosis [facility] [id number] [facility] [address] [place] [address] 03/28/2025 15:09:29 03/28/2025 15:39:38 Elevated blood-pressure reading without diagnosis of hypertension 182906487 R03.0 Improved. Vitamin D deficiency 347 28666 E55.9 Is forgetting to take supplement . Level was 19.5 Prediabetes 539349925 R7 3.03 hgba1c 6.0. Atypical chest pain 1025 27611 R07.89 Tachycardia 4131210 R00. 0 Offered to increase beta gilbert and he declined. Health Concerns Section Related Observation LastModified by Organization Detai ls LastModified Time None Recorded Concern Status LastModified by Organization Details LastModified Time None Recorded Payers Encounter Date Sequence Insurance Name Policy Number Policy Gomez Covered Member ID Gomez Member ID Guarantor Name 03/28/2025 1 [employer] [place] Lito Hernandez [id number] Yanet Margie Dinh Notes Date Note Type Note Provider Name and Address Organization Details Recorded Time 03/28/2025 text/html Pt is in today for follow up on HTN and discuss lab [...] heart disease. Mother had DM. Coreen Barragan, SAFETY ADVISOR [address], [place], [address], [place] - [facility] 03/28/2025 16:13:02
[2025-04-22 02:37] VITALS: BP 158/110; PULSE 99; RESP 16; TEMP 37.2; O2SAT 99; BMI 37.5
[2025-04-22] MEDS: ACETAMINOPHEN 500MG TAB 1000 MG PO (02:39)
[2025-04-22 02:40] VITALS: BP 147/101; PULSE 90; O2SAT 98
[2025-04-22 02:45] VITALS: PULSE 80; O2SAT 97
[2025-04-22 02:46] VITALS: BP 128/88; PULSE 83; O2SAT 95
[2025-04-22 03:00] VITALS: BP 129/82; PULSE 84; O2SAT 97
[2025-04-22 03:12] VITALS: BP 129/82; PULSE 84; RESP 14; TEMP 37.2; O2SAT 97
== END 2025-04-22 03:13 | disposition home or self-care (01) ==
PROVIDERS: Emergency Provider Emergency Medicine; PCP Family Medicine
DX: R11.10 Vomiting, unspecified (principal); I10 Essential (primary) hypertension
CPT/HCPCS: 99283